=== PATIENT | female | born 1980 | race Caucasian/White ===

== ENCOUNTER 2018-02-05 20:02 | Emergency (ER) | payer BC, OTHER ==
[~2018-02-05] VITALS: Ht 167.6 cm; Wt 72.6 kg
--- NOTE | 2018-02-05 20:29 | ED Upper Extremity ---
General Chief Complaint: Laceration Stated Complaint: L HAND PINKY LAC Nursing Triage Note: pt has lac to left 5th finger after cutting on can at home. Nursing Sepsis Screen: No Definite Risk Source: patient Exam Limitations: no limitations History of Present Illness Date Seen by Provider: Feb 05, 2018 Time Seen by Provider: 20:25 Initial Comments To ER with laceration to the pad of the left fifth finger distal phalanx. Tetanus was updated 4 years ago. She cut this on a can at home while opening a can prior to arrival. Onset: just prior to arrival Severity: mild Pain/Injury Location: left 5th finger Allergies and Home Medications Allergies Coded Allergies: No Known Drug Allergies (Unverified , 02/05/18) Home Medications No Active Prescriptions or Reported Meds Patient Home Medication List Home Medication List Reviewed: Yes Constitutional: see HPI EENTM: see HPI Respiratory: no symptoms reported Cardiovascular: no symptoms reported Genitourinary: no symptoms reported Musculoskeletal: no symptoms reported Skin: see HPI Psychiatric/Neurological: No Symptoms Reported Past Wikzmft-Bswmqq-Dokzet Hx Patient Social History Alcohol Use: Denies Use Recreational Drug Use: No Smoking Status: Never a Smoker Recent Foreign Travel: No Contact w/Someone Who Travel: No Recent Infectious Disease Expo: No Recent Hopitalizations: No Seasonal Allergies Seasonal Allergies: No Surgeries History of Surgeries: Yes (tympanoplasty left ear, right breast duck) Surgeries: Section Neurological History of Neurological Disord: No Physical Exam Vital Signs Vital Signs - First Documented 02/05/18 20:14 Temp 98.1 Pulse 74 Resp 18 B/P (MAP) 129/105 (113) Pulse Ox 100 O2 Delivery Room Air Capillary Refill : Less Than 3 Seconds General Appearance: WD/WN, no apparent distress HEENT: PERRL/EOMI, normal ENT inspection Neck: non-tender, full range of motion Shoulder: normal inspection, non-tender Elbow/Forearm: normal inspection, non-tender Wrist: Yes normal inspection, Yes non-tender Hand: Left, laceration (1 cm laceration to the pad of the distal phalanx left fifth finger depth to the subcutaneous tissues with active bleeding easily controlled with the application of a finger tourniquet. Finger was then scrubbed with chlorhexidine/saline solution then glued with Dermabond and a fingertip protector plastic was applied.) Neurologic/Tendon: normal sensation, normal motor functions Neurologic/Psychiatric: alert, normal mood/affect, oriented x 3 Skin: normal color, warm/dry Laceration Repair : Wound Location: Upper Extremities Wound Length (cm): 1 Wound's Depth, Shape: linear Wound Explored: clean Other Closure Supply: Wound Adhesive Progress/Results/Core Measures Results/Orders Vital Signs/I&O Vital Sign - Last 12Hours 02/05/18 20:14 Temp 98.1 Pulse 74 Resp 18 B/P (MAP) 129/105 (113) Pulse Ox 100 O2 Delivery Room Air Blood Pressure Mean: 113 Departure Impression Impression: Primary Impression: Fingertip laceration Disposition: HOME, SELF-CARE Condition: Stable Departure-Patient Inst. Decision time for Depature: 20:27 Referrals: NO,LOCAL PHYSICIAN (PCP/Family) Primary Care Physician Patient Instructions: Laceration Repair With Glue (DC) Add. Discharge Instructions: 1. You may shower allowing water to run over this. Do not apply anything petroleum-based such as Vaseline or Neosporin as that will dissolve the glue. This glue should follow up on its own in 3-5 days. One fingertip protector for the next 3-5 days to protect this and to keep from picking at it. All discharge instructions reviewed with patient and/or family. Voiced understanding. Scripts No Active Prescriptions or Reported Meds TERESA SPARKS APRN Feb 05, 2018 20:29
[2018-02-05 20:57] VITALS: BP 129/105
== END 2018-02-05 20:39 | disposition home or self-care (01) ==
LOC: ER 20:05
DX: S61.217A Laceration without foreign body of left little finger without damage to nail, initial encounter (principal); Z87.59 Personal history of other complications of pregnancy, childbirth and the puerperium; W26.8XXA Contact with other sharp object(s), not elsewhere classified, initial encounter; Y92.009 Unspecified place in unspecified non-institutional (private) residence as the place of occurrence of the external cause
CPT/HCPCS: 12001; 29130